=== PATIENT | female | born 1990 | race Caucasian/White ===

== ENCOUNTER 2020-11-01 12:40 | Emergency (ER) | payer OTHER, SELFPAY ==
[2020-11-01] VITALS (15 sets, daily range): BP systolic 144–160; BP diastolic 89–122; PULSE 106–125; RESP 18–30; TEMP 36.6–37.2; O2SAT 91–98
--- NOTE | ~2020-11-01 | XR_ITS ---
XR chest 2V DATE: 11/01/2020 13:27 INDICATION: Shortness of breath TECHNIQUE: PA and lateral views COMPARISON: 05/29/2019 PA chest FINDINGS: Surgical clips overlie the upper abdomen on lateral view, likely due to cholecystectomy. Normal heart size. No hilar or mediastinal enlargement. The lungs are hyperinflated. No pulmonary inf iltrate or consolidation, pleural effusion or pulmonary vascular congestion or pneumothorax is detect ed. Minimal dextroscoliosis of the thoracic spine. IMPRESSION: Bilateral hyperinflation Reviewed, dictated and finalized at location A. [employer] IMPRESSION: Bilateral hyperinflation
--- NOTE | 2020-11-01 12:48 | ECG_ITS ---
Measurements Intervals [place] Rate: 108 P: 85 AK: 106 QRS: 91 QRSD: 92 T: 33 QT: 305 QTc: 409 Interpretive Statements SINUS TACHYCARDIA WITH SHORT AK INTERVAL RIGHT AXIS DEVIATION NONSPECIFIC ST & T-WAVE ABNORMALITY- ANTEROLAT/INF LEADS ABNORMAL ECG Electronically Signed On 11-02-2020 7:09:56 [employer] L[employer] STAFF by Evens Narvaez D.O.
[2020-11-01] MEDS: IPRATROPIUM 0.5 MG/ALBUTEROL SULFATE 2.5 MG AMPUL.NEB 3 ML INHALATION (12:53)
[2020-11-01] MEDS: ALBUTEROL SULFATE NEB 2.5 MG/3 ML INH INHALATION (13:00)
[2020-11-01] MEDS: DEXAMETHASONE SOD PHOS INJ 4 MG/ML VIAL 10 MG IV PUSH (13:06)
[2020-11-01] MEDS: diphenhydrAMINE HCl INJ 50 MG/ML VIAL 25 MG IV PUSH (13:10)
[2020-11-01 13:21] LABS: Basophils Absolute Auto 0.06 K/mm3 (0.00-0.10); Basophils Percent Auto 0.4 % (0.0-1.0); Eosinophils Absolute Auto 0.28 K/mm3 (0.02-0.50); Eosinophils Percent Auto 1.9 % (1.0-6.0); Hematocrit 46.2 % (35.0-49.0); Hemoglobin 15.2 g/dL (12.0-15.0); Immature Granulocyte Absolute 0.05 K/mm3 (0.00-0.00); Immature Granulocyte Percent A 0.3 % (0.0-0.0); Lymphocytes Absolute Auto 2.58 K/mm3 (1.10-4.50); Lymphocytes Percent Auto 17.8 % (18.0-42.0); Mean Corpuscular HGB Conc 32.9 g/dL (32.0-36.0); Mean Corpuscular Hemoglobin 29.9 pg (27.0-31.0); Mean Corpuscular Volume 90.9 fL (78.0-102.0); Mean Platelet Volume 9.9 fl (9.2-11.8); Monocytes Absolute Auto 0.99 K/mm3 (0.10-0.90); Monocytes Percent Auto 6.8 % (2.0-11.0); Neutrophils Absolute Auto 10.5 K/mm3 (1.7-7.2); Neutrophils Percent Auto 72.8 % (50.0-70.0); Platelet Count Result 274 K/mm3 (150-420); Red Blood Count 5.08 M/mm3 (4.20-5.40); Red Cell Distribution Width 12.3 % (11.6-14.4); White Blood Count 14.5 K/mm3 (4.8-10.8)
--- NOTE | 2020-11-01 13:22 | PC.NURSE ---
ERP REQUESTED RN DOES NOT COMPLETE 12 LEAD EKG, ERROR IN ORDERS
[2020-11-01 13:32] LABS: D Dimer 0.19 mg/L (0.19-0.50)
[2020-11-01 13:35] LABS: Alanine Aminotransferase 16 U/L (14-59); Albumin Level 4.4 g/dL (3.4-5.0); Alkaline Phosphatase 77 U/L (46-116); Anion Gap 12 mmol/L (8-16); Aspartate Amino Transferase 14 U/L (15-37); Bilirubin,Total 0.4 mg/dL (0.00-1.00); Blood Urea Nitrogen 7 mg/dL (7-18); Calcium 9.1 mg/dL (8.5-10.1); Carbon Dioxide 26 mmol/L (21-32); Chloride 103 mmol/L (98-108); Estimated CRCL calculation 69 ml/min; Estimated Glomerular Filt Rate > 60; Glucose 111 mg/dL (70-99); Osmolality Calculated 291 mOsm/kg (285-295); Sodium 141 mmol/L (136-145); Total Protein 7.8 g/dL (6.4-8.2); Troponin I 9.2 ng/L (0.00-60.4)
[2020-11-01 13:38] LABS: BNP 35.8 pg/mL (0-100); SARS-CoV-2 Ag Negative (Negative)
[2020-11-01] MEDS: racEPINEPHrine 2.25% NEBU SOLN 0.5 ML VIAL.NEB INHALATION (14:03)
--- NOTE | 2020-11-01 14:07 | ED.SOB ---
HPI - SOB/Dyspnea General Chief Complaint: Shortness of Breath/Dyspnea Stated Complaint: Sob Time Seen by Provider: 11/01/20 12:55 Source: patient Mode of arrival: ambulatory Limitations: no limitations History of Present Illness HPI Narrative: Patient states she had been mildly short of breath and was using her albuterol more. This am she has been at least moderately severely short of breath and has been able to tolerate exercise less. She has noticed herself wheezing more. MD elicited complaint: shortness of breath Pertinent past history: asthma Timing: intermittent and progressively worsening Severity: moderate Exacerbating factors: exertion Relieving factors: rest Known history of: asthma Associated symptoms: denies other symptoms Related Data Home Medications Medication Instructions Recorded Confirmed albuterol sulfate 1 inh INHALATION Q4-5H PRN 11/01/20 11/01/20 Allergies Allergy/AdvReac Type Severity Reaction Status Date / Time No Known Allergies Allergy Verified 11/01/20 13:24 Review of Systems Constitutional: Constitutional: Reports no additional constitutional complaints Eyes: Eyes: Reports no additional eye complaints ENT: Reports system reviewed and no additional complaints, except as documented Cardiovascular: Cardiovascular: Reports no additional cardiovascular complaints Respiratory: Respiratory: Reports no additional respiratory complaints Gastrointestinal: Gastrointestinal: Reports no additional gastrointestinal complaints Genitourinary: Genitourinary: Reports no additional female genitourinary complaints Musculoskeletal: Musculoskeletal: Reports no additional musculoskeletal complaints Integumentary/Breasts: Skin/Breast: Reports system reviewed and no additional complaints, except as docu Neurologic: Reports system reviewed and no additional complaints, except as documented Psychiatric: Psychiatric: Reports no additional psychiatric complaints Endocrine: Endocrine: Reports no additional endocrine complaints Hematologic/Lymphatic: Hematologic/Lymphatic: Reports no additional hematologic/lymphatic complaints Allergic/Immunologic: Allergic/Immunologic: Reports no additional allergic/immunologic complaints [facility] Past Medical History Medical History (Updated 11/01/20 @ 20:45 by Cory Powell MD) Asthma Surgical History Surgical History No significant past surgical history Family History Family History Father CAD (coronary artery disease) Social History Social History (Updated 11/01/20 @ 20:47 by Cory Powell MD) Smoking status: Current every day smoker Additional smoking assessment comments: 1/2 PPD Alcohol use details: rare minimal alcohol use Exam Const: General: alert Orientation/consciousness: patient oriented x3 HENMT: Head: normal to inspection Ears: external ears normal General nose exam: Normal external nose present and Normal nares present Mouth: Yes Normal oral and palatal mucosa present and Yes moist mucous membranes Eyes: Conjunctivae: conjunctivae normal Neck: Neck: normal visual inspection Chest: Chest palpation & inspection: normal inspection of the chest Resp: Effort & Inspection: tachypneic Other: loud wheezing bilateral Cardio: Rate: regular rate Rhythm: regular rhythm GI: GI Palp: Yes Soft to palpation (nontender) Back/Spine/Pelvis: Back: no CVA tenderness Skin: General skin exam: normal color Neuro: General: patient oriented x3 and moves all extremities Extrem: General: normal to inspection Psych: Mental Status: mental status grossly normal Thought content: Yes Normal thought content present Course Course Emergency Course: She was evaluated with labs, covid test, D Dimer, chest x ray, EKG. These were unremarkable except CXR which showed hyperinflation. She was given a duoneb, later albuterol 2.5mg, then race
[2020-11-01] MEDS: ALPRAZolam (*CRX) 0.25 MG TABLET PO (14:11)
--- NOTE | 2020-11-01 14:21 | PC.NURSE ---
ERP CHANGED HIS MIND AND NOW REQUESTED THAT ER NURSE DO 12 LEAD EKG
== END 2020-11-01 15:55 | disposition home or self-care (01) ==
PROVIDERS: Emergency Provider Emergency Medicine; PCP Family Medicine
DX: J45.21 Mild intermittent asthma with (acute) exacerbation (principal); Z20.822 Contact with and (suspected) exposure to COVID-19; F17.200 Nicotine dependence, unspecified, uncomplicated
CPT/HCPCS: 36415; 71046; 80053; 83880; 84484; 85025; 85380; 87426; 93005; 94640; 96374; 96375; 99283; 99284; A9270; C9803; J1100; J1200

== ENCOUNTER 2021-02-03 21:17 | Emergency (ER) | payer OTHER, SELFPAY ==
[2021-02-03 21:30] VITALS: BP 122/80; PULSE 64; RESP 18; TEMP 36.6; O2SAT 99
[2021-02-03 22:17] LABS: Basophils Absolute Auto 0.05 K/mm3 (0.00-0.10); Basophils Percent Auto 0.3 % (0.0-1.0); Eosinophils Absolute Auto 0.46 K/mm3 (0.02-0.50); Eosinophils Percent Auto 2.9 % (1.0-6.0); Hematocrit 38.3 % (35.0-49.0); Hemoglobin 12.9 g/dL (12.0-15.0); Immature Granulocyte Absolute 0.07 K/mm3 (0.00-0.00); Immature Granulocyte Percent A 0.4 % (0.0-0.0); Lymphocytes Absolute Auto 3.25 K/mm3 (1.10-4.50); Lymphocytes Percent Auto 20.8 % (18.0-42.0); Mean Corpuscular HGB Conc 33.7 g/dL (32.0-36.0); Mean Corpuscular Hemoglobin 30.1 pg (27.0-31.0); Mean Corpuscular Volume 89.5 fL (78.0-102.0); Mean Platelet Volume 9.8 fl (9.2-11.8); Monocytes Absolute Auto 0.71 K/mm3 (0.10-0.90); Monocytes Percent Auto 4.5 % (2.0-11.0); Neutrophils Absolute Auto 11.1 K/mm3 (1.7-7.2); Neutrophils Percent Auto 71.1 % (50.0-70.0); Platelet Count Result 271 K/mm3 (150-420); Red Blood Count 4.28 M/mm3 (4.20-5.40); Red Cell Distribution Width 12.8 % (11.6-14.4); White Blood Count 15.6 K/mm3 (4.8-10.8)
[2021-02-03 22:24] LABS: Anion Gap 12 mmol/L (8-16); Blood Urea Nitrogen 11 mg/dL (7-18); Calcium 8.7 mg/dL (8.5-10.1); Carbon Dioxide 25 mmol/L (21-32); Chloride 100 mmol/L (98-108); Estimated CRCL calculation 86 ml/min; Estimated Glomerular Filt Rate > 60; Glucose 96 mg/dL (70-99); Osmolality Calculated 283 mOsm/kg (285-295); Potassium 3.6 mmol/L (3.5-5.1); Sodium 137 mmol/L (136-145)
--- NOTE | 2021-02-03 22:31 | ED.GENADULT ---
HPI - General Adult General Chief complaint: CHEMICAL LAB TECHNICIAN Stated complaint: PAIN IN ABD AND LOWER BACK, VAG BLEEDING, VOMITING Source: patient Mode of arrival: ambulatory Limitations: no limitations History of Present Illness HPI narrative: Clarissa is a 30 at 6 weeks gestation by reported US that came to the ED with vaginal bleeding. She had a trans vaginal US today. Later she started to some light vaginal bleeding (less than a pad). It was accompanied by cramping but no clots or tissue. No symptoms reported other than the cramps and light vaginal bleeding. Related Data Home Medications Medication Instructions Recorded Confirmed albuterol sulfate [Ventolin HFA] See Rx Instructions .ROUTE .COMPLEX 02/03/21 02/03/21 fluticasone propionate [Flovent See Rx Instructions .ROUTE .COMPLEX 02/03/21 02/03/21 HFA] Allergies Allergy/AdvReac Type Severity Reaction Status Date / Time No Known Allergies Allergy Verified 02/03/21 21:49 Review of Systems Constitutional: Constitutional: Reports no additional constitutional complaints Eyes: Eyes: Reports no additional eye complaints ENT: Reports system reviewed and no additional complaints, except as documented Cardiovascular: Cardiovascular: Reports no additional cardiovascular complaints Respiratory: Respiratory: Reports no additional respiratory complaints Gastrointestinal: Gastrointestinal: Reports no additional gastrointestinal complaints Genitourinary: Genitourinary: Reports as per HPI Musculoskeletal: Musculoskeletal: Reports no additional musculoskeletal complaints Integumentary/Breasts: Skin/Breast: Reports system reviewed and no additional complaints, except as docu Neurologic: Reports system reviewed and no additional complaints, except as documented Psychiatric: Psychiatric: Reports no additional psychiatric complaints Endocrine: Endocrine: Reports no additional endocrine complaints Hematologic/Lymphatic: Hematologic/Lymphatic: Reports no additional hematologic/lymphatic complaints Allergic/Immunologic: Allergic/Immunologic: Reports no additional allergic/immunologic complaints [facility] Social History Social History Smoking status: Current every day smoker Exam Const: General: no acute distress and alert Orientation/consciousness: patient oriented x3 Limitations: No altered mental status HENMT: Head: normal to inspection Other: atraumatic Eyes: Conjunctivae: conjunctivae normal Pupils: Equal, round and reactive pupils present Neck: Neck: normal visual inspection Resp: Effort & Inspection: normal respiratory effort, not labored, not tachypneic and no use of accessory muscles Cardio: Rate: regular rate : Other: Declined pelvic exam Skin: General skin exam: normal color Rashes: no rashes Neuro: General: patient oriented x3, moves all extremities, no focal motor deficits and CN's II-XI intact bilaterally Extrem: General: normal to inspection Psych: Appearance: grossly normal and well kempt Mental Status: mental status grossly normal Affect: Anxious affect present Course Course Emergency Course: Clarissa was evaluated. She refused a pelvic exam and said she didn't want it done as she was to see her doctor tomorrow. She was informed that we could not make an accurate diagnosis of potential miscarriage vs other diagnosis without it and she voiced understanding but still declined the pelvic exam. She did agree to stay for labs in case she was Rh- so they were ordered. She declined meds for pain throughout the visit. Labs showed leukocytosis but she denied any dysuria/hematuria, SOB, and skin lesion and anatomy could not be examined. Blood type was O+ so no Rhogam was needed and she was discharged. Vital Signs Vital signs: Vital Signs Temperature 98 F 02/03/21 21:30 Pulse Rate 64 02/03/21 21:30 Respiratory Rate 18 02/03/21 21:30 Blood Pressure 122/80
== END 2021-02-03 23:23 | disposition home or self-care (01) ==
PROVIDERS: Emergency Provider Family Medicine; PCP Family Medicine
DX: O46.91 Antepartum hemorrhage, unspecified, first trimester (principal)
CPT/HCPCS: 36415; 80048; 85025; 86850; 86900; 86901; 99282; 99283

== ENCOUNTER 2022-02-26 03:09 | Emergency (ER) | payer OTHER, SELFPAY ==
[2022-02-26] MEDS: MORPHINE SULFATE (*CRX) 4 MG/ML INJ (04:03)
[2022-02-26] MEDS: OXYTOCIN 10 UNITS/ML VIAL (04:19)
--- NOTE | 2022-02-26 04:20 | PC.NURSE ---
[id number] placenta born. in tact, 1 vein, 1 artery
--- NOTE | 2022-02-26 04:21 | PC.NURSE ---
Addendum entered by Dayday Gautam RN 02/26/22 04:21: baby vitals at 10 minutes 82/49 o2 90% 78p Original Note: baby vitals
[2022-02-26 04:23] VITALS: BP 120/70; PULSE 62; RESP 16; TEMP 36.7; O2SAT 98
--- NOTE | 2022-02-26 04:25 | ED.GENADULT ---
HPI - General Adult General Chief complaint: OB/Uterine Contractions Stated complaint: Active Labor History of Present Illness HPI narrative: Clarissa is a 31 (1 live , 2 miscarriages) at 38.6 weeks in a complicated by borderline high blood pressure that presented to the ER with contractions. She woke up at 0200 with worsening contractions that didn't go away. She thought it was very imminent so she did not drive to [facility] where she had planned on delivering. There were no other concerns other than the pressure and pain from her contractions. She was not sure exactly when she broke her water. Related Data Home Medications Medication Instructions Recorded Confirmed albuterol sulfate 90 mcg/actuation 1 inh inhalation Q4-5H PRN 11/01/20 11/01/20 aerosol inhaler Shortness Of Breath albuterol sulfate 90 mcg/actuation See Rx Instructions .Route .COMPLEX 02/03/21 02/03/21 aerosol inhaler (Ventolin HFA) fluticasone propionate 110 See Rx Instructions .Route .COMPLEX 02/03/21 02/03/21 mcg/actuation HFA aerosol inhaler (Flovent HFA) Allergies Allergy/AdvReac Type Severity Reaction Status Date / Time No Known Allergies Allergy Verified 12/08/21 11:32 Review of Systems Constitutional: Constitutional: Reports no additional constitutional complaints Eyes: Eyes: Reports no additional eye complaints ENT: Reports system reviewed and no additional complaints, except as documented Cardiovascular: Cardiovascular: Reports no additional cardiovascular complaints Respiratory: Respiratory: Reports no additional respiratory complaints Gastrointestinal: Gastrointestinal: Reports no additional gastrointestinal complaints Genitourinary: Genitourinary: Reports as per HPI Musculoskeletal: Musculoskeletal: Reports no additional musculoskeletal complaints Integumentary/Breasts: Skin/Breast: Reports system reviewed and no additional complaints, except as docu Neurologic: Reports system reviewed and no additional complaints, except as documented Psychiatric: Psychiatric: Reports no additional psychiatric complaints Endocrine: Endocrine: Reports no additional endocrine complaints Hematologic/Lymphatic: Hematologic/Lymphatic: Reports no additional hematologic/lymphatic complaints Allergic/Immunologic: Allergic/Immunologic: Reports no additional allergic/immunologic complaints [facility] Past Medical History Medical History (Updated 02/26/22 @ 05:49 by Dru Peña DO) Asthma Surgical History Surgical History (Updated 12/08/21 @ 11:32 by Michelle Pond) No significant past surgical history Family History Family History (System 12/08/21 @ 11:32 by Michelle Pond) Father CAD (coronary artery disease) Social History Social History (System 12/08/21 @ 11:32 by Michelle Pond) Smoking status: Current every day smoker Additional smoking assessment comments: 09/19 PPD Alcohol use details: rare minimal alcohol use Exam Const: Nutritional Appearance: well nourished Orientation/consciousness: patient oriented x3 Limitations: no limitations Other: Was in significant distress hyperventilating holding her abdomen sitting with her feet in the stirrups HENMT: Head: normal to inspection Ears: external ears normal General nose exam: Normal external nose present Face and sinus: normal facial exam Mouth: Yes Normal oral and palatal mucosa present Teeth and gingiva: dentition normal Eyes: Conjunctivae: conjunctivae normal Pupils: Equal, round and reactive pupils present EOM: EOMs intact bilaterally Neck: Neck: normal visual inspection Chest: Chest palpation & inspection: normal inspection of the chest Resp: Effort & Inspection: tachypneic Other: Hyperventilation but breath sounds clear Cardio: Rate: regular rate Rhythm: regular rhythm GI: Other: Gravid uterus : External Female Exam: normal external appearance Other: Amniotic fluid leaking from the vag
--- NOTE | 2022-02-26 04:27 | PC.NURSE ---
9 at 1 min
--- NOTE | 2022-02-26 05:35 | PHAR ---
pt recieved 4mg morphine, 10 of oxytocin
== END 2022-02-26 05:30 | disposition short-term general hospital (02) ==
LOC: CHSED 03:15
PROVIDERS: Emergency Provider Family Medicine; PCP Family Medicine
DX: O80 Encounter for full-term uncomplicated delivery (principal); Z37.0 Single live birth; Z3A.38 38 weeks gestation of pregnancy; J45.909 Unspecified asthma, uncomplicated; F17.200 Nicotine dependence, unspecified, uncomplicated
CPT/HCPCS: 96374; 99285; J2270; J2590

== ENCOUNTER 2024-02-03 18:50 | Emergency (ER) | payer OTHER, SELFPAY ==
[2024-02-03 18:50] VITALS: BP 119/76; PULSE 78; RESP 16; TEMP 36.8; O2SAT 100
--- NOTE | 2024-02-03 19:09 | PC.NURSE ---
ER provider at the bedside
--- NOTE | 2024-02-03 19:21 | ED.HA ---
HPI - Headache General Chief Complaint: Headache Stated Complaint: jaw pain into rastafarian Time Seen by Provider: 02/03/24 18:59 Source: patient Mode of arrival: ambulatory Limitations: no limitations History of Present Illness HPI Narrative: this is a 33-year-old female that presents with some right maxillary sinus tenderness radiating into her right ear with some no fever chills symptoms for the last 2 weeks patient is and has tried Tylenol [id number]. There is a nasal congestion with pressure in her right maxillary area with no shortness of breath no fever chills no nausea vomiting. MD elicited complaint: headache Onset description: gradually Location: facial Severity: moderate Pain scale (0-10): 4 Quality & Timing: aching Related Data Home Medications Medication Instructions Recorded Confirmed albuterol sulfate 90 mcg/actuation 1 inh inhalation Q4-5H PRN 11/01/20 02/03/24 aerosol inhaler Shortness Of Breath Allergies Allergy/AdvReac Type Severity Reaction Status Date / Time No Known Allergies Allergy Verified 12/08/21 11:32 Review of Systems Review of Systems: All systems reviewed & are unremarkable except as noted in HPI and below PMFSH Past Medical History Medical History Asthma Surgical History Surgical History No significant past surgical history Family History Family History Father CAD (coronary artery disease) Social History Social History Smoking status: Current every day smoker Additional smoking assessment comments: 1/2 PPD Alcohol use details: rare minimal alcohol use Exam Const: General: healthy appearing, no acute distress and alert Nutritional Appearance: well nourished Orientation/consciousness: patient oriented x3 HENMT: Other: Maxillary sinus tenderness on the right with palpation with some swollen turbinates and bilateral ear pressure and dullness right greater than left Neck: Neck: normal visual inspection, no lymphadenopathy and no meningeal signs Chest: Chest palpation & inspection: normal inspection of the chest Resp: Effort & Inspection: normal respiratory effort Auscultation: clear to auscultation bilaterally GI: GI Palp: Yes Soft to palpation Skin: General skin exam: normal color Rashes: no rashes Extrem: General: normal to inspection Course Course Emergency Course: patient received a dose of amoxicillin, advised patient to take medicine as prescribed and follow with primary if symptoms persist or worsen. Vital Signs Vital signs: Vital Signs Temperature 36.8 C 02/03/24 18:50 Pulse Rate 78 02/03/24 18:50 Respiratory Rate 16 02/03/24 18:50 Blood Pressure 119/76 02/03/24 18:50 Pulse Oximetry 100 02/03/24 18:50 Oxygen Delivery Room Air 02/03/24 18:50 Temperature 36.8 C 02/03/24 18:50 Pulse Rate 78 02/03/24 18:50 Respiratory Rate 16 02/03/24 18:50 Blood Pressure 119/76 02/03/24 18:50 Pulse Oximetry 100 02/03/24 18:50 Oxygen Delivery Room Air 02/03/24 18:50 Critical Care Time Critical Care Time Critical Care Time: No Discharge Plan Discharge Clinical Impression: Sinusitis Patient Disposition: Home, Self-Care Condition: Stable Instructions: Antibiotic Form Additional Instructions: Advised patient to take antibiotics as prescribed and follow up with primary if symptoms persist or worsen. Prescriptions: New amoxicillin 500 mg tablet 500 mg PO TID Qty: 20 0RF No Action albuterol sulfate 90 mcg/actuation HFA aerosol inhaler 1 inh INHALATION Q4-5H PRN (Reason: Shortness Of Breath) albuterol sulfate 2.5 mg /3 mL (0.083 %) solution for nebulization 2.5 mg inhalation Q4H PRN (Reason: bronchospasm) Qty: 75 1RF albutero
[2024-02-03] MEDS: AMOXICILLIN 500 MG CAPSULE PO (19:28)
--- NOTE | 2024-02-03 19:39 | PC.NURSE ---
patient signed refusal for HIV testing. 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
== END 2024-02-03 19:39 | disposition home or self-care (01) ==
PROVIDERS: Emergency Provider Emergency Medicine; PCP Family Medicine
DX: J32.9 Chronic sinusitis, unspecified (principal); J45.909 Unspecified asthma, uncomplicated; Z79.51 Long term (current) use of inhaled steroids; F17.200 Nicotine dependence, unspecified, uncomplicated
CPT/HCPCS: 99283; A9270